=== PATIENT | male | born 1970 | race Caucasian/White ===

== ENCOUNTER 2019-03-28 14:54 | Observation (INO) | payer OTHER ==
[2019-03-28] MEDS ORDERED: Labetalol IV* 5 MG/ML 20 ML VIAL IV PUSH ONE ×2 (15:51→17:08)
--- NOTE | 2019-03-28 15:55 | ED ---
Hypertension - HPI Summary HPI Summary: This patient is a 48 year old M presenting to [facility] with a chief complaint of high blood pressure of 240/140 measured today 03/28/19 in . Symptoms aggravated by nothing. Symptoms alleviated by nothing. Pt reports high blood pressure hx but has not been taking medication for about 1 yr. Pt reports he was there due to sharp pains on his left side that he initially felt when he woke up this morning and coughed and has been continuously feeling every time he coughs and bends down. Pt reports he thought he broke his rib thus prompting his visit to . Pt did not have x-ray done at . Pt reports a recent head cold. - History of Current Complaint Chief Complaint: EDHypertension Stated Complaint: HIGH BLOOD PRESSURE PER PT Time Seen by Provider: 03/28/19 15:42 Hx Obtained From: Patient Onset/Duration: Started Hours Ago, Still Present Aggravating Factor(s): Nothing Alleviating Factor(s): Nothing Associated Signs & Symptoms: Other: - sharp pains on left side - Allergies/Home Medications Allergies/Adverse Reactions: Allergies Allergy/AdvReac Type Severity Reaction Status Date / Time No Known Allergies Allergy Verified 03/28/19 15:02 Home Medications: Home Medications NK [No Home Medications Reported] 03/28/19 [History Confirmed 03/28/19] PMH/Surg Hx/FS Hx/Imm Hx Endocrine/Hematology History: Denies: Hx Diabetes Cardiovascular History: Denies: Hx Hypercholesterolemia Sensory History: Denies: Hx Legally Blind Opthamlomology History: Denies: Hx Legally Blind - Surgical History Surgery Procedure, Year, and Place: pins in fingers Infectious Disease History: No Infectious Disease History: Denies: Traveled Outside the [place] in Last 30 Days - Family History Known Family History: Positive: Diabetes - Social History Alcohol Use: Occasionally Hx Substance Use: No Substance Use Type: Reports: None Hx Tobacco Use: No Smoking Status (MU): Never Smoked Tobacco Review of Systems Positive: Other - high BP Positive: Other - sharp pains on left side All Other Systems Reviewed And Are Negative: Yes Physical Exam - Summary Physical Exam Summary: VITAL SIGNS: Reviewed. GENERAL: Patient is a well-developed and nourished MALE who is lying comfortable in the stretcher. Patient is not in any acute respiratory distress. HEAD AND FACE: No signs of trauma. No ecchymosis, hematomas or skull depressions. No sinus tenderness. EYES: PERRLA, EOMI x 2, No injected conjunctiva, no nystagmus. EARS: Hearing grossly intact. Ear canals and tympanic membranes are within normal limits. MOUTH: Oropharynx within normal limits. NECK: Supple, trachea is midline, no adenopathy, no JVD, no carotid bruit, no c- spine tenderness, neck with full ROM. CHEST: Symmetric, no tenderness at palpation. LUNGS: Clear to auscultation bilaterally. No wheezing or crackles. CVS: Regular rate and rhythm, S1 and S2 present, no murmurs or gallops appreciated. ABDOMEN: Soft, non-tender. No signs of distention. No rebound, no guarding, and no masses palpated. Bowel sounds are normal. EXTREMITIES: FROM in all major joints, no edema, no cyanosis or clubbing. NEURO: Alert and oriented x 3. No acute neurological deficits. Speech is normal and follows commands. SKIN: Dry and warm. Triage Information Reviewed: Yes Vital Signs On Initial Exam: Initial Vitals Temp Pulse Resp BP Pulse Ox 98.8 F 106 16 247/166 96 03/28/19 14:59 03/28/19 14:59 03/28/19 14:59 03/28/19 14:59 03/28/19 14:59 Vital Signs Reviewed: Yes Procedures - Sedation Patient Received Moderate/Deep Sedation with Procedure: No Diagnostics - Vital Signs Vital Signs Temp Pulse Resp BP Pulse Ox 03/28/19 14:59 98.8 F 106 16 247/166 96 - Laboratory Result Diagrams: 03/29/19 05:46 03/29/19 05:46 Lab Statement: Any lab studies that have been ordered have been reviewed, and results considered in the medical decision making process. - Radiology Chest X-Ray Radiology Interpretation Completed By: Radiologist Summary of Radiographic Findings: Per radiologist,. No acute cardiopulmonary process by radiograph. ED physician has reviewed this imaging report. - EKG 1557 Cardiac Rate: NL - 96 Summary of EKG Findings: EKG taken at 1557 reveals sinus rhythm at 96 BPM, no st elevations, st lead in 1, t-wave impressions of 1 AVL, V2-V6, LVH. no old one for comparison. Hypertension Course/Dx - Course Assessment/Plan: This patient is a 48 year old M presenting to [facility] with a chief complaint of high blood pressure of 240/140 measured today 03/28/19 in . Symptoms aggravated by nothing. Symptoms alleviated by nothing. Pt reports high blood pressure hx but has not been taking medication for about 1 yr. Pt reports he was there due to sharp pains on his left side that he initially felt when he woke up this morning and coughed and has been continuously feeling every time he coughs and bends down. Pt reports he thought he broke his rib thus prompting his visit to . Pt did not have x-ray done at . Pt reports a recent head cold. Blood work without any significant abnormality except for hematocrit of 41, potassium 3.4, creatinine 1.19, glucose 110, and BMP of 135. In the ED course the patient was given a total of labetalol 40 mg IV and the blood pressure is 193/135. EKG is a sinus rhythm with LVH. At this time I discussed my physical exam and findings with Dr. Aquino from the hospital services who accepted the patient for admission. The patient is hemodynamically stable alert and oriented 3. - Diagnoses Differential Diagnosis/HQI PQRI: Hypertension, Hypertensive Crisis, Hypertensive Urgency, Renal Disease Provider Diagnoses: Hypertensive urgency - Physician Notifications Discussed Care Of Patient With: Jhon Aquino - hospitalist Time Discussed With Above Provider: 18:00 Instructed by Provider To: Admit As Inpatient - due to hypertensive emergency Discharge ED - Sign-Out/Discharge Documenting (check all that apply): Patient Departure - admit - Discharge Plan Condition: Improved Disposition: ADMITTED TO [facility] - Billing Disposition and Condition Condition: IMPROVED Disposition: Admitted to [facility] - Attestation Statements Document Initiated by Sher: Yes Documenting Scribe: No Sanchez Provider For Whom Sher is Documenting (Include Credential): Dr. Cristian Wolfe MD Scribe Attestation: I, No Sanchez scribed for Dr. Cristian Wolfe MD on 03/29/19 at 1852. Scribe Documentation Reviewed: Yes Provider Attestation: The documentation as recorded by the No sheth accurately reflects the service I personally performed and the decisions made by me, Dr. Cristian Wolfe MD Status of Scribe Document: Viewed
[2019-03-28 16:13] LABS: ABS Basophils 0.1 10^3/ul (0-0.2); ABS Lymphocytes 1.4 10^3/ul (1.0-4.8); ABS Neutrophils 5.9 10^3/ul (1.5-7.7); Eosinophil % 0.3 %; Hematocrit 41 % (42-52); Hemoglobin 14.6 g/dL (14.0-18.0); Lymphocyte % 16.3 %; Mean Corpuscular HGB Conc 36 g/dL (31-36); Mean Corpuscular Hemoglobin 31 pg (27-31); Mean Corpuscular Volume 87 fL (80-94); Mean Platelet Volume 7.4 fL (7.4-10.4); Nucleated Red Blood Cells % 0.1; Platelet Count 265 10^3/uL (150-450); Red Blood Count 4.68 10^6 /uL (4.18-5.48); Red Cell Distribution Width 13 % (10-15); White Blood Count 8.4 10^3/uL (3.5-10.8)
[2019-03-28 16:29] LABS: ALT 24 U/L (7-52); AST 22 U/L (13-39); Albumin 4.4 g/dL (3.2-5.2); Albumin/Globulin Ratio 1.4 (1-3); Alkaline Phosphatase 93 U/L (34-104); Anion Gap 8 mmol/L (2-11); BUN/Creatinine Ratio 16.8 (8-20); Blood Urea Nitrogen 20 mg/dL (6-24); CO2 Carbon Dioxide 28 mmol/L (22-32); Calcium 9.9 mg/dL (8.6-10.3); Chloride 101 mmol/L (101-111); EGFR African American 78.6 (>60); Globulin 3.1 g/dL (2-4); Glucose 110 mg/dL (70-100); Potassium 3.4 mmol/L (3.5-5.0); Sodium 137 mmol/L (135-145); Total Protein 7.5 g/dL (6.4-8.9)
[2019-03-28] MEDS: amLODIPine TAB* 5 MG PO SCH (18:09)
[2019-03-28] MEDS: Lisinopril TAB* 10 MG PO SCH (18:09)
[2019-03-28] MEDS: Metoprolol Tartrate TAB* 50 mg PO SCH ×2 (18:09→22:35)
[2019-03-28 18:45] LABS: Troponin I 0.03 ng/mL (<0.03)
[2019-03-28] MEDS ORDERED: Acetaminophen TAB* 325 MG PO PRN (19:16)
[2019-03-28] MEDS ORDERED: Ondansetron INJ* 2 MG/ML VIAL IV PRN (19:16)
[2019-03-28] MEDS ORDERED: Potassium Chlor TAB* 20 MEQ TAB.ER PO ONE (19:24)
[2019-03-28 19:42] LABS: Magnesium 2.1 mg/dL (1.9-2.7)
[2019-03-28 19:57] LABS: TSH (Thyroid Stimulating Horm) 0.78 mcIU/mL (0.34-5.60)
[2019-03-28 20:05] LABS: Troponin I 0.04 ng/mL (<0.03)
[2019-03-28] MEDS: Enoxaparin(*) 40 MG/0.4 ML SYR SUBCUT SCH (21:13)
[2019-03-28 23:11] LABS: Troponin I 0.04 ng/mL (<0.03)
--- NOTE | 2019-03-28 23:14 | HP ---
MEDICINE HISTORY AND PHYSICAL: DATE OF ADMISSION: 03/28/19 PROVIDER: Paras Her NP ATTENDING PHYSICIAN: Dr. Jhon Aquino * (dictated by Paras Her NP) PRIMARY CARE PROVIDER: None. CHIEF COMPLAINT: Left-sided pain with cough, hypertension. HISTORY OF PRESENT ILLNESS: Mr. Brunner is a 48-year-old gentleman who presented to the ER today after being referred for further evaluation by the [facility]. He reports that this morning he was trying to sit up and coughed and had sudden onset of left-sided pain. He felt like he might have cracked a rib. He describes a super sharp pain that still hurts when he coughs. It is now dull and achy but still somewhat noticeable. He presented to [facility] for further evaluation and had a concern for an elevated blood pressure of 240/140. He did not have any evaluation there and was referred to the ER. Mr. Brunner describes recent cold symptoms and states that he is at the tail end of a head cold with worsening symptoms occurring a little over a week ago. He still endorses cough, postnasal drip and phlegm, but is feeling as if he is improving. He denies any headache, recent fevers or chills. He denies chest pain, weight changes, orthopnea, edema. He denies any shortness of breath or hemoptysis but does endorse cough from his previous illness as mentioned. Denies abdominal pain, nausea, vomiting, diarrhea. Denies any dysuria or hematuria. Denies focal weakness or sensory loss, changes in vision or hearing. Denies any new joint or muscle pains other than left-sided rib pain and denies any rashes, lesions, or other concerns. Mr. Brunner states that he previously lived in [place] and moved here approximately 2 years ago. Prior to moving, he had a PCP in [place] who had him on hydrochlorothiazide and 2 additional agents in addition to aspirin. He did receive refills upon moving and ran out of those approximately a year to a year and a half ago and has not taken the time to schedule a PCP appointment. He states that he felt like something like this may come on, but has really felt okay. He does state that he does occasionally feel some lightheadedness. Denies any other noticeable symptoms. He denies any known kidney disease. Here in the ER, labs were drawn and he did have concern for potassium of 3.4, creatinine 1.19, glucose 110. Troponin 0.03 and a BNP of 135. He did receive labetalol and his blood pressure has trickled down with the lowest reading at 189/142, which is most recent. PAST MEDICAL HISTORY: Hypertension. HOME MEDICATIONS: Currently none. ALLERGIES: No known drug allergies. FAMILY HISTORY: He reports mother with a history of diabetes. SOCIAL HISTORY: He reports quitting 10 years ago and he smoked for approximately 4 to 5 years. He reports having 1 beer a couple times a week. Denies any drug use. He works for the [employer] office. He lives by himself. His mother, Carlee Brunner, is his surrogate decision maker in the event of an emergency. REVIEW OF SYSTEMS: A 14-point review of systems was completed with the patient. All pertinent positives and negatives as per HPI, all those not mentioned are negative. PHYSICAL EXAMINATION GENERAL: This is a well-developed, well-nourished 48-year-old male, seen sitting up in the ED stretcher, in no acute distress. VITAL SIGNS: Temperature 98.8, heart rate 80, respiratory rate 20, blood pressure 178/135, and O2 saturation is 95% on room air. HEENT: Head is atraumatic, normocephalic. Pupils are equal, round, reactive to light and accommodation. Extraocular movements are intact. Sclerae anicteric. Oral mucosa is moist. No oropharyngeal erythema or exudate. NECK: With full range of motion, supple. No JVD noted. No carotid bruits auscultated. No lymphadenopathy appreciated. CHEST: No tenderness with palpation. LUNGS: Clear to auscultation bilaterally. CARDIAC: Regular rate and rhythm. Normal S1, S2 heart sounds. No murmurs appreciated. No peripheral edema noted. Distal pulses are 2+ and symmetric at radial and pedal sites. ABDOMEN: Soft, nontender, nondistended. There is left-sided tenderness along the left flank rib cage with palpation. Bowel sounds are normoactive. MUSCULOSKELETAL: No clubbing or cyanosis with full range of motion in all major joints. NEURO: Alert and oriented x3, no focal deficits. Speech is clear. Cranial nerves II through XII are grossly intact. Sensation is intact to light touch to lower extremities. SKIN: Warm and dry. DIAGNOSTIC STUDIES/LAB DATA: CBC: WBC 8.4, hemoglobin 14.6, hematocrit 41, platelet count 265. CMP: Sodium 137, potassium 3.4, chloride 101, carbon dioxide 28, BUN 20, creatinine 1.19, glucose 110, calcium 8.9, magnesium 2.1. Total bilirubin 0.5, AST 22, ALT 24, alk phos 73. Troponin 0.03. BNP 135. Albumin 4.4. Chest x-ray, no acute cardiopulmonary process. EKG shows sinus rhythm at 96, no ST or T wave changes to suggest acute ischemia. There are no old medical records for review. ASSESSMENT AND PLAN: This is a 48-year-old male with a past medical history significant for hypertension. He was lost to followup when moving locally and now presents with concern for hypertensive urgency and left rib pain. He will be admitted under OBV status. Plan is as follows: 1. Hypertension. Currently asymptomatic, although he does endorse occasional lightheadedness. It is reasonable to watch him overnight for observation, monitor him on telemetry, continue to trend his blood pressure and discharge him with assistance in getting a PCP. He did receive labetalol in the ER and he was started on Norvasc, lisinopril, and metoprolol p.o., which we will continue. These are reasonable medications to continue as an outpatient until he is able to meet with his PCP. We will also check for other comorbidities as he does have an elevated BNP; will check echo, TSH and A1c given his lack of followup in the outpatient setting. He would benefit from stress testing once BP is under better controlled. 2. Left-sided rib pain. Rib x-rays are ordered and pending results. 3. Elevated creatinine. We do not have a baseline creatinine function. I did discuss with him that untreated hypertension can result in kidney injury, and it is most likely secondary to hypertension. His BUN is normal. Continue his blood pressure control and recommend follow up with PCP in the outpatient setting. 4. Hypokalemia. This is mild. He denies any recent vomiting or diarrhea. We will replete this and follow his BMP tomorrow. 5. Elevated troponin. It is 0.03. We will repeat this now. He is denying any chest pain at this time. This may be demand ischemia. Continue to trend troponins to peak. 6. FEN. Heart healthy diet. 7. DVT prophylaxis. Subcu Lovenox. 8. Code status. Full code. TIME SPENT: Approximately 65 minutes was spent on this admission with more than half the time was spent [id number] with the patient obtaining history and physical, performing physical examination, and reviewing the plan of care. Plan of care was also reviewed with my attending, Dr. Aquino, who is in agreement. PARAS HER, DIESEL POWERPLANT SUPERVISOR [id number]/CPS #: [id number] MTDD
[2019-03-29 06:19] LABS: ABS Basophils 0.1 10^3/ul (0-0.2); ABS Eosinophils 0.1 10^3/ul (0-0.6); ABS Monocytes 1.1 10^3/ul (0-0.8); ABS Neutrophils 4.2 10^3/ul (1.5-7.7); Eosinophil % 1.1 %; Hematocrit 39 % (42-52); Hemoglobin 13.7 g/dL (14.0-18.0); Lymphocyte % 26.8 %; Mean Corpuscular HGB Conc 35 g/dL (31-36); Mean Corpuscular Hemoglobin 31 pg (27-31); Mean Corpuscular Volume 88 fL (80-94); Mean Platelet Volume 7.4 fL (7.4-10.4); Nucleated Red Blood Cells % 0.3; Platelet Count 251 10^3/uL (150-450); Red Blood Count 4.43 10^6 /uL (4.18-5.48); Red Cell Distribution Width 13 % (10-15); White Blood Count 7.4 10^3/uL (3.5-10.8)
[2019-03-29 06:36] LABS: BUN/Creatinine Ratio 16.2 (8-20); Calcium 9.2 mg/dL (8.6-10.3); EGFR African American 85.2 (>60); EGFR Non-African American 70.4 (>60); Potassium 3.5 mmol/L (3.5-5.0)
[2019-03-29] MEDS: Lisinopril TAB* 10 MG PO SCH (10:11)
[2019-03-29] MEDS: Metoprolol Tartrate TAB* 50 mg PO SCH (10:12)
[2019-03-29] MEDS: amLODIPine TAB* 5 MG PO SCH (10:12)
--- NOTE | 2019-03-29 13:59 | PN ---
Subjective Date of Service: 03/29/19 Interval History: Patient evaluated at bedside. Stated that he is having ongoing left flank/rib pain that is worse with coughing, twisting or bending down. Resting makes it feel better. Does not feel short of breath at rest. Denies headaches, palpitations, abdominal pain, nausea, vomiting, issues with bowel or bladder. Family History: Unchanged from Admission Social History: Unchanged from Admission Past Medical History: Unchanged from Admission Objective Active Medications: Acetaminophen (Tylenol Tab*) 650 mg PO Q4H PRN PRN Reason: MILD PAIN or TEMP > 100.4 Amlodipine Besylate (Norvasc Tab*) 5 mg PO DAILY [facility] Last Admin: 03/29/19 10:12 Dose: 5 mg Enoxaparin Sodium (Lovenox(*)) 40 mg SUBCUT Q24H [facility] Last Admin: 03/28/19 21:13 Dose: 40 mg Lisinopril (Prinivil Tab*) 10 mg PO DAILY [facility] Last Admin: 03/29/19 10:11 Dose: 10 mg Metoprolol Tartrate (Lopressor Tab*) 50 mg PO Q12HR [facility] Last Admin: 03/29/19 10:12 Dose: 50 mg Ondansetron HCl (Zofran Inj*) 4 mg IV Q6H PRN PRN Reason: NAUSEA/VOMITING Vital Signs - 8 hr 03/29/19 03/29/19 07:47 11:37 Temperature 98 F 97.7 F Pulse Rate 70 76 Respiratory 20 20 Rate Blood Pressure 141/97 158/107 (mmHg) O2 Sat by Pulse 97 97 Oximetry Oxygen Devices in Use Now: None Appearance: This is a well developed gentleman seen resting in bed. Eyes: No Scleral Icterus, PERRLA Ears/Nose/Mouth/Throat: NL Teeth, Lips, Gums, Mucous Membranes Moist Neck: NL Appearance and Movements; NL JVP, Trachea Midline Respiratory: Symmetrical Chest Expansion and Respiratory Effort, Clear to Auscultation Cardiovascular: NL Sounds; No Murmurs; No JVD, No Edema Abdominal: NL Sounds; No Tenderness; No Distention Lymphatic: No Cervical Adenopathy Extremities: No Edema, No Clubbing, Cyanosis Skin: No Rash or Ulcers, No Nodules or Sclerosis Neurological: Alert and Oriented x 3 Lines/Tubes/Other Access: Clean, Dry and Intact Peripheral IV Result Diagrams: 03/29/19 05:46 03/29/19 05:46 Assess/Plan/Problems-Billing Assessment: This is a 48 year old male wih a past medical history significant for HTN admitted on 03/28/19 for left rib pain, EKG abnormalities. Is now a newly diagnosed diabetic. - Patient Problems (1) Chest pain Current Visit: Yes Status: Acute Code(s): R07.9 - CHEST PAIN, UNSPECIFIED SNOMED Code(s): 56579758 Comment: -Left sided chest/flank pain started yesterday. Worse with coughing , twisting, bending. No fractures detected on xray. Noted significant t-wave depression in most leads, worsening from yesterday. Troponins have evened out at 0.04. -D-dimer negative. -Stress test tomorrow. Awaiting results of echo. Holding metoprolol for stress test tomorrow. (2) HTN (hypertension) Current Visit: Yes Status: Acute Code(s): I10 - ESSENTIAL (PRIMARY) HYPERTENSION SNOMED Code(s): 33030685 Comment: -Admitting BP 247/166, has decreased significantly. Patient had been on blood pressure medication 1.5 years ago but did not see his PCP again to restart the prescriptions. -Upon admission, was started on metoprolol, amlodipine and lisinopril. Holding metoprolol tonight and tomorrow morning for stress test. -Will need referral to [facility] to be monitored as an outpatient. (3) Diabetes type 2, controlled Current Visit: Yes Status: Acute Code(s): E11.9 - TYPE 2 DIABETES MELLITUS WITHOUT COMPLICATIONS SNOMED Code(s): 80190329 Comment: -Newly diagnosed on this admission with a Hgb A1C of 6.6%. Provided some education. Will refer to Danielle Green NP for outpatient diabetes counceling. Ordered nutritional consult while inpatient. -Fingersticks to be performed BID with no sliding scale coverage. Made an agreement with patient that he should try lifestyle changes first with a recheck of A1C in 3 months before starting him on metformin. (4) DVT prophylaxis Current Visit: Yes Status: Acute Code(s): Z29.9 - ENCOUNTER FOR PROPHYLACTIC MEASURES, UNSPECIFIED SNOMED Code(s): 625781411 Comment: -Continue lovenox and SCD's (5) Full code status Current Visit: Yes Status: Acute Code(s): Z78.9 - OTHER SPECIFIED HEALTH STATUS SNOMED Code(s): 487169917 Status and Disposition: Condition: Guarded. Disposition: Admit OBV to [facility]. Attending: Vanna Duarte
--- NOTE | 2019-03-29 16:30 | ECHO ---
*[facility]* [place] [address] Fax #: [phone] Transthoracic Echocardiogram Patient: Martin Brunner : 1970 Study Date: 03/29/2019 Age: 48 Gender: M HR: 71 bpm Height: 66 in /167.6 cm BSA: 1.93 m^2 Weight: 184.6 lb /83.9 kg BMI: 29.9 kg/m^2 *Record Label Internship: * Sunita Stephens RDCS RN *Referring Physician: * Ashley Her *Reading Physician: * Kurtis Tam MD Indications: Abnormal EKG. Hypertension. History: Risk factors: Former tobacco use. Hypertension. Conclusions Summary: - Left ventricle: The cavity size is trivially reduced. Wall thickness is moderately to severely increased. Systolic function is hyperdynamic. The estimated ejection fraction is 65-70%. Wall motion is normal; there are no regional wall motion abnormalities. - Right ventricle: Systolic function is normal. - Mitral valve: There is mild regurgitation. - Aortic valve: There is trace to mild regurgitation. - Tricuspid valve: There is trace to mild regurgitation. - Pulmonary arteries: Systolic pressure can not be accurately estimated. - Study data: No prior study is available for comparison. Study data: Transthoracic echocardiogram. Procedure: Transthoracic echocardiography was performed. Image quality was fair. The study was technically limited due to body habitus and Smoking history. Complete 2D, spectral Doppler, and color flow Doppler. Location: Bedside. Patient status: Observation. Patient room number: 440. No prior study is available for comparison. Rhythm: Normal sinus rhythm. Findings Left ventricle: The cavity size is trivially reduced. Wall thickness is moderately to severely increased. Systolic function is hyperdynamic. The estimated ejection fraction is 65-70%. Wall motion is normal; there are no regional wall motion abnormalities. Features are consistent with a pseudonormal left ventricular filling pattern, with concomitant abnormal relaxation and increased filling pressure (grade 2 diastolic dysfunction). Right ventricle: The cavity size is normal. Systolic function is normal. Left atrium: The atrium is mildly dilated. Right atrium: The atrium is normal in size. Mitral valve: The leaflets are mildly thickened. There is no evidence of stenosis. There is mild regurgitation. Aortic valve: The valve is trileaflet. There is no evidence of stenosis. There is trace to mild regurgitation. Tricuspid valve: The valve is structurally normal. There is no evidence of stenosis. There is trace to mild regurgitation. Pulmonic valve: The valve is structurally normal. There is no evidence of stenosis. There is trace regurgitation. Aorta: Aortic root: The aortic root is upper normal in size. Ascending aorta: The ascending aorta is mildly dilated at 3.9 cm. Aortic arch: The aortic arch is not dilated. Pericardium: There is no pericardial effusion. Pulmonary arteries: Not well visualized. Systolic pressure can not be accurately estimated. Systemic veins: Inferior vena cava: The vessel is normal in size. There is (>= 50%) respiratory change in the IVC dimension. Measurements Left ventricle Value Ref Aortic valve Value Ref PATRICE, LAX (L) 4.1 cm 4.2 - 5.8 Maira diam, ED 1.8 cm ---- ESD, LAX (L) 2.2 cm 2.5 - 4.0 Peak v, S 1.53 m/sec ---- FS, LAX (H) 46 % 25 - 43 VTI, S 32.2 cm ---- PW, ED (H) 1.6 cm 0.6 - 1.0 Mean grad, S 5.0 mm Hg ---- IVS/PW, ED 1.12 Peak grad, S 9.0 mm Hg ---- E', lat maira, TDI (L) 6.1 cm/sec >=10.0 LVOT/AV, VTI ratio 0.86 - --- E/e', lat maira, 14 TDI Mitral valve Value Ref E', med maira, TDI (L) 5.0 cm/sec >=7.0 Peak E 0.85 m/sec - --- E/e', med maira, 17 Peak A 0.77 m/sec ---- TDI Decel time 190 ms ---- E', avg, TDI 5.6 cm/sec Peak grad, D 2.9 mm Hg ---- E/e', avg, TDI (H) 15 <=14 Peak E/A ratio 1.1 - --- LVOT Value Ref Pulmonic valve Value Ref Peak ermelinda, S 1.28 m/sec Peak v, S 0.99 m/sec ---- VTI, S 27.8 cm Peak grad, S 4.0 mm Hg ---- Peak grad, S 7 mm Hg Mean grad, S 5 mm Hg Aortic root Value Ref Root diam 3.6 cm <4.1 Ventricular septum Value Ref Root max diam, ED 3.6 cm <4.1 IVS, ED (H) 1.8 cm 0.6 - 1.0 Ascending aorta Value Ref Right ventricle Value Ref AAo AP diam, S 3.9 cm ---- PATRICE, LAX 2.7 cm AAo AP diam/bsa, S 2.0 cm/m^2 ---- PATRICE minor ax, A4C 3.1 cm 1.9 - 3.5 mid Aortic arch Value Ref Arch diam 3.0 cm ---- Left atrium Value Ref AP dim, ES 3.40 cm 3.00 - Decending aorta Value Ref 4.00 Kasandra peak ermelinda 0.57 m/sec ---- ML dim, A4C 3.7 cm SI dim, A4C 5.4 cm Inferior vena cava Value Ref Vol/bsa, ES, 1-p 25 ml/m^2 12 - 37 Diam 1.4 cm ---- A4C Vol/bsa, ES, A/L (H) 37 ml/m^2 16 - 34 Right atrium Value Ref ML dim, ES, A4C 3.7 cm 2.6 - 4.4 SI dim, ES, A4C 4.6 cm 3.4 - 5.3 Estimated RAP 3 mm Hg Legend: (L) and (H) rizwan values outside specified reference range. Prepared and electronically signed by Kurtis Tam MD 03/29/2019 16:30
[2019-03-29] MEDS: Enoxaparin(*) 40 MG/0.4 ML SYR SUBCUT SCH (19:50)
[2019-03-30] MEDS: Lisinopril TAB* 10 MG PO SCH (08:26)
[2019-03-30 08:42] LABS: C Reactive Protein 10.26 mg/L (<8.01)
[2019-03-30] MEDS ORDERED: Regadenoson* 0.4 MG/5 ML SYRINGE ONE (12:45)
[2019-03-30] MEDS ORDERED: Hydrochlorothiazide TAB* 25 MG PO ONE (13:24)
[2019-03-30] MEDS: amLODIPine TAB* 5 MG PO SCH (13:52)
--- NOTE | 2019-03-30 16:31 | CONS ---
CARDIOLOGY CONSULTATION: DATE OF CONSULT: 03/30/19 INDICATION FOR CONSULTATION: Chest pain, abnormal troponin. HISTORY OF PRESENT ILLNESS: The patient is a 48-year-old gentleman with a history of hypertension, who came to urgent care this weekend because of left- sided pain after coughing and sneezing. The patient states he was at home and suddenly had a fit of coughing and sneezing and all of a sudden had lower left rib pain. It was hard to take a deep inspiration. It was a sudden onset in discomfort. He went to urgent care for evaluation. When he was at urgent care , he had an EKG, which was markedly abnormal and had LVH with strain pattern. The patient was transferred over to [facility] and admitted. The patient had minimally elevated troponin level of 0.03. Since being here, the patient has been noted to be markedly hypertensive, but his pain in his ribs has resolved. The patient underwent an echocardiogram, which showed normal LV function with futuemes-dx-ahemyl left ventricular hypertrophy, no significant valvular abnormalities. The patient underwent a chemical nuclear stress test today. His stress perfusion images are completely normal. In speaking with the patient today, he denies any symptoms. He denies any shortness of breath. Denies any palpitations. No lightheadedness, dizziness, or syncope. PAST MEDICAL HISTORY: Significant only for hypertension. OUTPATIENT MEDICATIONS: None. ALLERGIES: None. FAMILY HISTORY: Mother has a history of diabetes. SOCIAL HISTORY: He works for the [employer]. He is a previous smoker. He quit 12 years ago. He drinks 1 beer a week. Lives by himself. REVIEW OF SYSTEMS: Negative for fevers and chills. Negative for changes in bowel or bladder habits. Negative for weight change. Other 12-point review is unremarkable. PHYSICAL EXAM: Height is 5 feet 6 inches, weight is 190 pounds, temperature 97.8, heart rate is 76, blood pressure 163/105, respiratory rate is 20, oxygen saturation 99% on room air. Sclerae anicteric. Oropharynx is pink without erythema. Carotids are 2+ without bruits. JVD is normal. Thyroid is normal. Cardiac Exam: S1, S2 without any murmurs, rubs, or gallops. Lungs are clear to auscultation bilaterally. There is no dullness to percussion. Abdomen is soft , nontender, nondistended with normoactive bowel sounds. Extremities show no edema. He has 2+ pulses throughout. The patient is awake, alert, and oriented. He moves all 4 extremities equally. LABORATORY DATA: Chemistries within normal limits. Hemoglobin A1c is 6.6. Troponin peak at 0.04. C-reactive protein was elevated at 10.2. CBC within normal limits. IMPRESSION AND PLAN: This is a 48-year-old gentleman who came to urgent care because of sudden rib pain after sneezing and coughing. The patient was admitted to the hospital because of an abnormal EKG consistent with left ventricular hypertrophy with strain pattern and an abnormal troponin level. The patient's workup is significant for left ventricular hypertrophy. His stress test is not concerning for ischemia or infarct. For now, my impression is that the patient's presentation is more consistent with sudden rib pain from his coughing and sneezing. I do not think the patient has an acute cardiac event. The patient does have left ventricular hypertrophy from untreated hypertension. The patient's echocardiogram may be consistent with amyloidosis with his left ventricular hypertrophy and a mildly speckled pattern. For now, my recommendation is the patient be treated for his hypertension and his diabetes. The patient will be seen as an outpatient for further workup of this possible amyloidosis. [id number]/[facility] #: [id number] THALIA
--- NOTE | 2019-03-30 18:49 | PN ---
Subjective Date of Service: 03/30/19 Interval History: Patient seen at bedside after having just returned from his stress test. Unable to perform resting portion due to elevated blood pressure. Continuing to report left sided chest/flank pain without shortness of breath, radiating pain, nausea , vomiting, fever, chills, headaches. Denies issues with moving bowel or bladder. Family History: Unchanged from Admission Social History: Unchanged from Admission Past Medical History: Unchanged from Admission Objective Active Medications: Acetaminophen (Tylenol Tab*) 650 mg PO Q4H PRN PRN Reason: MILD PAIN or TEMP > 100.4 Enoxaparin Sodium (Lovenox(*)) 40 mg SUBCUT Q24H [facility] Last Admin: 03/29/19 19:50 Dose: 40 mg Hydrochlorothiazide (Hydrodiuril Tab*) 25 mg PO DAILY KRISTY Lisinopril (Prinivil Tab*) 10 mg PO DAILY [facility] Last Admin: 03/30/19 08:26 Dose: 10 mg Ondansetron HCl (Zofran Inj*) 4 mg IV Q6H PRN PRN Reason: NAUSEA/VOMITING Vital Signs - 8 hr 03/30/19 03/30/19 13:05 15:00 Temperature 98.3 F Pulse Rate 91 Respiratory 20 Rate Blood Pressure 158/102 166/103 (mmHg) O2 Sat by Pulse 100 Oximetry Oxygen Devices in Use Now: None Appearance: Well developed gentleman seen resting in bed. Eyes: No Scleral Icterus, PERRLA Ears/Nose/Mouth/Throat: NL Teeth, Lips, Gums, Clear Oropharnyx, Mucous Membranes Moist Neck: NL Appearance and Movements; NL JVP, Trachea Midline Respiratory: Symmetrical Chest Expansion and Respiratory Effort, Clear to Auscultation Cardiovascular: NL Sounds; No Murmurs; No JVD, RRR, No Edema Abdominal: NL Sounds; No Tenderness; No Distention Lymphatic: No Cervical Adenopathy Extremities: No Edema, No Clubbing, Cyanosis Skin: No Rash or Ulcers, No Nodules or Sclerosis Neurological: Alert and Oriented x 3 Lines/Tubes/Other Access: Clean, Dry and Intact Peripheral IV Result Diagrams: 03/29/19 05:46 03/29/19 05:46 Assess/Plan/Problems-Billing Assessment: This is a 48 year old male wih a past medical history significant for HTN admitted on 12/7/19 for left rib pain, EKG abnormalities. Is now a newly diagnosed diabetic. - Patient Problems (1) Chest pain Current Visit: Yes Status: Acute Code(s): R07.9 - CHEST PAIN, UNSPECIFIED SNOMED Code(s): 56759956 Comment: -Left sided chest/flank pain started 12/. Worse with coughing, twisting, bending. No fractures detected on xray. Noted significant t-wave depression in most leads, worsening from yesterday. Troponins have evened out at 0.04. Cardiology consulted, felt that the EKG and trops were due to uncontrolled HTN/LVH. -Echo showed EF of 65-70% with septal thickening. -D-dimer negative. -Unable able to perform resting part of stress test today due to elevated blood pressure, though lexiscan performed. Will make NPO after midnight to complete testing in AM. (2) HTN (hypertension) Current Visit: Yes Status: Acute Code(s): I10 - ESSENTIAL (PRIMARY) HYPERTENSION SNOMED Code(s): 08067672 Comment: -Admitting BP 247/166, has decreased significantly. Patient had been on blood pressure medication 1.5 years ago but did not see his PCP again to restart the prescriptions. -Upon admission, was started on metoprolol, amlodipine and lisinopril. Discontinued metoprolol today, reinstated HCTZ, which is what he had originally been on. Increased amlodipine from 5 to 10mg. -Will need referral to [facility] to be monitored as an outpatient. (3) Diabetes type 2, controlled Current Visit: Yes Status: Acute Code(s): E11.9 - TYPE 2 DIABETES MELLITUS WITHOUT COMPLICATIONS SNOMED Code(s): 96878508 Comment: -Newly diagnosed on this admission with a Hgb A1C of 6.6%. Provided some education. Will refer to Rosalind Burns for outpatient diabetes counceling. Ordered nutritional consult while inpatient. -Fingersticks to be performed BID with no sliding scale coverage. Made an agreement with patient that he should try lifestyle changes first with a recheck of A1C in 3 months before starting him on metformin. (4) DVT prophylaxis Current Visit: Yes Status: Acute Code(s): Z29.9 - ENCOUNTER FOR PROPHYLACTIC MEASURES, UNSPECIFIED SNOMED Code(s): 633730424 Comment: -Continue lovenox and SCD's (5) Full code status Current Visit: Yes Status: Acute Code(s): Z78.9 - OTHER SPECIFIED HEALTH STATUS SNOMED Code(s): 712262104 Status and Disposition: Condition: Guarded. Disposition: Admit OBV to 4S. Attending: Jhon Aquino
[2019-03-30] MEDS: Enoxaparin(*) 40 MG/0.4 ML SYR SUBCUT SCH (20:47)
[2019-03-30] MEDS ORDERED: amLODIPine TAB* 5 MG PO SCH (21:00)
[2019-03-31] MEDS: Lisinopril TAB* 10 MG PO SCH (08:12)
[2019-03-31] MEDS ORDERED: Hydrochlorothiazide TAB* 25 MG PO SCH (09:00)
[2019-03-31 12:10] VITALS: BP 160/103
--- NOTE | 2019-04-01 08:30 | DS ---
CC: [facility] * DISCHARGE SUMMARY: DATE OF ADMISSION: 03/28/19 DATE OF DISCHARGE: 03/31/19 ATTENDING PHYSICIAN: Dr. Kapoor.* (DICTATED BY BRENDA YOON NP) PRIMARY CARE PHYSICIAN: None. Refer to [facility]. CONSULTING PHYSICIAN: Dr. Tam PRIMARY DIAGNOSES: 1. Hypertensive emergency and left-sided rib pain. 2. New onset type 2 diabetes with a hemoglobin A1c of 6.6. SECONDARY DIAGNOSES: None. PROCEDURES: None. STUDIES: EKG showed sinus rhythm with global ST depression and left ventricular hypertrophy. Transthoracic echocardiogram showed LVH, ejection fraction of 65% to 70%. Systolic function is hyperdynamic. The left ventricular filling pattern is consistent with grade 2 diastolic dysfunction, mild regurgitation of the mitral valve, trace to mild regurgitation of the tricuspid valve, trace regurgitation of the pulmonic valve, left rib x-ray showed no displaced rib fracture, no pneumothorax, no focal airspace opacification and similar cardiomegaly with probable left atrial enlargement. Chest x-ray showed no acute cardiopulmonary process. Resting nuclear cardiac stress test showed hypokinesis greater at rest and stress with [id number] resting left ventricular dysfunction estimated at 44% ejection fraction compared with 53% normal range estimated left ventricular ejection fraction at stress, upper normal estimated left ventricular and diastolic volume and no evidence for stress-induced ischemia or presence of an infarct assessment, intermediate risk based on the nuclear portion. PERTINENT LAB DATA: Hemoglobin 13.7, hematocrit 39, D-dimer less than 200, hemoglobin A1c at 6.6. HISTORY OF PRESENT ILLNESS/HOSPITAL COURSE: This is a 48-year-old male with a past medical history significant for hypertension, who presented to the emergency room on 03/28/19 reporting sudden onset left-sided chest pain after coughing concerned that he might have cracked a rib. Rib x-ray performed at that time, which showed no evidence for fracture. However, labs were drawn and noted the troponin levels were slightly elevated. Admitting blood pressure was 247/166. The patient has originally moved up from [place] about 2 years ago and at that point he had been on 3 different antihypertensive agents including hydrochlorothiazide, though had stopped taking them after not establishing with a primary care physician up here. Initially, he was treated with metoprolol, lisinopril, and amlodipine. Blood pressures still remained elevated in the 160s/100 to one-teens. Discontinued metoprolol and added hydrochlorothiazide with his final blood pressures being anywhere between 130s and 150s systolically and diastolically blood pressure in the high 90s. With the intent of patient is to follow up with [facility] upon discharge to titrate blood pressure medication as needed, I anticipate he will likely need to be increase in dosage. Upon discharge, he denied having any headaches, blurry vision, still reported left-sided chest pain with movement and deep breathing and palpation though not at rest. As for his diabetes, hemoglobin A1c was found to be 6.6 and has no previous diagnosis of diabetes, provided education about hemoglobin A1c goals and nutritional suggestion, was seen by Russell Pabon the CAP nurse who will be able to set him up with more outpatient resources. It is anticipated that after he establishes as a patient with [facility], he is to get a glucometer for home with hopes of checking fingersticks twice a day. REVIEW OF SYSTEMS: An 11-point system review was performed, which was positive for left rib pain with movement, breathing and palpation and better with rest. Denies any shortness of breath, palpitations, abdominal pain, nausea, vomiting or if she is moving bowel or bladder. PHYSICAL EXAM: Vital Signs: 97.8 Fahrenheit, 78 pulse, 16 resp, 97% oxygen on room, 160/103 blood pressure. General: This is a well-developed gentleman seen sitting up in bed, no acute distress noted. Eyes: Conjunctivae pink and moist, PERRLA, EOMs intact. ENT: Mucous membranes moist, oropharynx clear. Neck is supple. Cardiac: S1, S2 present, heart rate regular. No murmurs, gallops, or rubs appreciated. Respiratory: Lung sounds clear throughout bilaterally on room air. No accessory muscle use noted. Abdomen is soft, nontender, nondistended with positive bowel sounds x4. Musculoskeletal: No clubbing, cyanosis of the digits. Skin: No open areas appreciated. No rashes or lesions. Neurologic: No focal deficits appreciated. Able to move all extremities. Sensation is intact to light touch. Psych: Alert and oriented x3. No anxiety or depression noted. DISCHARGE PLAN: To continue on with a low salt low fat diet, to restrict caffeine to 1 to 2 cups a day. He is to return to the hospital should he experience any sudden chest pain, shortness of breath, facial asymmetry, slurred speech, confusion or unilateral extremity weakness. PLAN FOR EACH CONDITION: 1. For hypertensive emergency, he was sent home with scripts for lisinopril, hydrochlorothiazide, and amlodipine and is to follow up with [facility] within a week to be able to titrate medications as needed. Encouraged to get a home blood pressure cuff to monitor his blood pressure several times a day until he is seen by [facility] and to trend the numbers to be able to show his new primary care physician. 2. Type 2 diabetes. Goal is to get the hemoglobin A1c below 6.4% because it was so slightly elevated, encouraged that patient attempt lifestyle changes before putting him on metformin. Suggest that he get an hemoglobin A1c 3 months from now to evaluate and at that time if it is still elevated, to be started on metformin. The patient educated about signs and symptoms of hyperglycemia and hypoglycemia though he would require reinforcement in all education as he appeared slightly overwhelmed by those information presented. MEDICATIONS UPON DISCHARGE: 1. Amlodipine 10 mg p.o. daily. 2. Lisinopril 10 mg p.o. daily. 3. Hydrochlorothiazide 25 mg p.o. daily. CONDITION UPON DISCHARGE: Improved. DISPOSITION: Home. TIME SPENT ON PATIENT: About 30 minutes. BRENDA YOON NP [id number]/[facility] #: [id number] THALIA
== END 2019-03-31 14:02 | disposition home or self-care (01) | DRG 305 ==
LOC: ED 14:54 → UNDOADMOB 19:16 → MEDTELE 19:16 → OBSVTOIN 19:16 → INTOOBSV 19:16 → OBSVTOIN 03-30 11:00 → UNDODISOB 03-31 14:02
PROVIDERS: ADMIT Internal Medicine; ATTEND Internal Medicine
DX: I16.1 Hypertensive emergency (principal); R07.81 Pleurodynia; E11.9 Type 2 diabetes mellitus without complications; I08.1 Rheumatic disorders of both mitral and tricuspid valves; I10 Essential (primary) hypertension; E87.6 Hypokalemia; I11.9 Hypertensive heart disease without heart failure; R74.8 Abnormal levels of other serum enzymes; Z87.891 Personal history of nicotine dependence; Z83.3 Family history of diabetes mellitus
CPT/HCPCS: 36415; 71045; 78452; 80048; 80053; 83036; 83735; 83880; 84443; 84484; 85025; 85379; 86140; 93005; 93017; 93306; 96374; 96376; 99284; A9270-GY; A9502; G0378; J1650; J2785

== ENCOUNTER 2019-04-03 16:32 | Emergency (ER) | payer OTHER ==
--- NOTE | 2019-04-03 18:22 | ED ---
Hypertension - HPI Summary HPI Summary: Patient presents for adjustment of hypertension medications. Patient was admitted to [facility] from 03/28- 03/31 for hypertensive urgency. Started on amlodipine, lisinopril, and Hydrochlorothiazide here in the ED. Was discharged with prescription for same medications. Patient states he woke up Saturday night with a swollen lower lip which persisted into the morning but then resolved on Monday 04/02. Patient discontinued taking amlodipine since he had taken amlodipine 10 mg Saturday evening the night before. Has been continuing to take lisinopril and hydrochlorothiazide. Patient has been taking his blood pressures regularly. Patient was advised upon discharge from [facility] to [facility]. Patient states he had appointment today and went to the wrong address and then was unable to be seen when he got to the correct address. Patient was advised to come to the ED for evaluation. Patient denies any symptoms, pain or injury. Patient states he is just trying to be compliant with getting his medications adjusted for his hypertension. - History of Current Complaint Chief Complaint: EDHypertension Stated Complaint: POSS DRUG REACTION PER PT Time Seen by Provider: 04/03/19 17:49 Hx Obtained From: Patient Onset/Duration: Started Days Ago Associated Signs & Symptoms: Negative - Allergies/Home Medications Allergies/Adverse Reactions: Allergies Allergy/AdvReac Type Severity Reaction Status Date / Time No Known Allergies Allergy Verified 03/28/19 15:02 PMH/Surg Hx/FS Hx/Imm Hx Endocrine/Hematology History: Reports: Hx Diabetes Cardiovascular History: Reports: Hx Angina, Hx Hypertension Denies: Hx Hypercholesterolemia History: Denies: Hx Dialysis Sensory History: Reports: Hx Contacts or Glasses Denies: Hx Legally Blind, Hx Hearing Aid Opthamlomology History: Reports: Hx Contacts or Glasses Denies: Hx Legally Blind EENT History: Denies: Hx Deafness Neurological History: Denies: Hx Dementia - Surgical History Surgery Procedure, Year, and Place: pins in fingers Infectious Disease History: No Infectious Disease History: Denies: Traveled Outside the [place] in Last 30 Days - Family History Known Family History: Positive: Diabetes - Social History Alcohol Use: Weekly Alcohol Amount: patient states "a couple of beers a week" Hx Substance Use: No Substance Use Type: Reports: None Hx Tobacco Use: No Smoking Status (MU): Former Smoker Review of Systems Constitutional: Negative Eyes: Negative ENT: Negative Cardiovascular: Negative Respiratory: Negative Gastrointestinal: Negative Genitourinary: Negative Musculoskeletal: Negative Skin: Negative Neurological: Negative Psychological: Normal All Other Systems Reviewed And Are Negative: Yes Physical Exam Triage Information Reviewed: Yes Vital Signs On Initial Exam: Initial Vitals Temp Pulse Resp BP Pulse Ox 98 F 102 18 157/112 96 04/03/19 16:37 04/03/19 16:37 04/03/19 16:37 04/03/19 16:37 04/03/19 16:37 Vital Signs Reviewed: Yes Appearance: Positive: Well-Appearing Skin: Positive: Warm Head/Face: Positive: Normal Head/Face Inspection Eyes: Positive: Normal Neck: Positive: Supple Respiratory/Lung Sounds: Positive: Clear to Auscultation Cardiovascular: Positive: Normal Abdomen Description: Positive: Nontender Musculoskeletal: Positive: Normal Neurological: Positive: Normal Psychiatric: Positive: Normal AVPU Assessment: Alert - Porsha Coma Scale Best Eye Response: 4 - Spontaneous Best Motor Response: 6 - Obeys Commands Best Verbal Response: 5 - Oriented Coma Scale Total: 15 Procedures - Sedation Patient Received Moderate/Deep Sedation with Procedure: No Diagnostics - Vital Signs Vital Signs Temp Pulse Resp BP Pulse Ox 04/03/19 16:37 98 F 102 18 157/112 96 - Laboratory Lab Statement: Any lab studies that have been ordered have been reviewed, and results considered in the medical decision making process. Hypertension Course/Dx - Course Course Of Treatment: Patient presents for adjustment of hypertension medications. Patient was admitted to [facility] from 03/28- 03/31 for hypertensive urgency. Started on amlodipine, lisinopril, and Hydrochlorothiazide here in the ED. Was discharged with prescription for same medications. Patient states he woke up Saturday night with a swollen lower lip which persisted into the morning but then resolved on Monday 04/02. Patient discontinued taking amlodipine since he had taken amlodipine 10 mg Saturday evening the night before. Has been continuing to take lisinopril and hydrochlorothiazide. Patient has been taking his blood pressures regularly. Patient was advised upon discharge from [facility] to [facility] with [facility]. Patient states he had appointment today and went to the wrong address and then was unable to be seen when he got to the correct address. Patient was advised to come to the ED for evaluation. Patient denies any symptoms, pain or injury. Patient states he is just trying to be compliant with getting his medications adjusted for his hypertension. Vital signs within normal limits. Patient SBP over the past 3 days between 110 and 160. Discussed patient with attending Dr. England who agreed patient could be discharged with no adjustment of medications and follow- up with [facility]. Patient has repeat appointment with [facility] on 13 April. Patient advised to return to the ED for concerning symptoms. - Diagnoses Provider Diagnoses: Hypertension Discharge ED - Sign-Out/Discharge Documenting (check all that apply): Patient Departure - Discharge Plan Condition: Stable Disposition: HOME Patient Education Materials: Hypertension (ED) Referrals: Mitch Irizarry MD [Primary Care Provider] - Additional Instructions: Continue taking your blood pressure medications except for amlodipine. Follow- up with primary care Dr Irizarry on your appointment at the . Return to the ED for any new or concerning symptoms in the meantime. - Billing Disposition and Condition Condition: STABLE Disposition: Home
[2019-04-03 18:58] VITALS: BP 150/95
== END 2019-04-03 18:30 | disposition home or self-care (01) ==
LOC: ED 16:32
DX: I10 Essential (primary) hypertension (principal); Z87.891 Personal history of nicotine dependence; E11.9 Type 2 diabetes mellitus without complications
CPT/HCPCS: 99281